=== PATIENT | male | born 1980 | race Caucasian/White ===

== ENCOUNTER 2020-05-09 21:50 | Observation (INO) | payer BC ==
[2020-05-10] MEDS ORDERED: Labetalol HCl 100 MG/20 ML VIAL SLOW IVP PRN (00:25)
[2020-05-10] MEDS ORDERED: Acetaminophen 325 MG TAB PO PRN (00:29)
[2020-05-10] MEDS ORDERED: Ondansetron ODT 4 MG TAB PO PRN (00:29)
--- NOTE | 2020-05-10 01:15 | PDOC.HHP ---
Hospitalist HPI - History of Present Illness Left upper extremity paresthesia and weakness History of Present Illness: PCP: None The patient is a 39-year-old male with no significant past medical history that presents to the ER as a transfer from [facility] for the above complaint. The patient reports the acute onset of left arm numbness, tingling and weakness prior to arrival. He reports that he was sitting in his truck, texting his on his phone when he got "tunnel vision" and left arm numbness and tingling. He reports that his left hand started to have muscle spasms with associated loss of sensation and weakness to the affected extremity. He reports this lasted anywhere from 30 seconds to a couple of minutes then spontaneously resolved. He denies any headache, changes in speech. He reports having a chiropractor adjust his neck on Wednesday. He denies any known trauma/fall. He does not take any medications. No psychiatric history. No recent fever or illness. He denies any chest pain, heart palpitations. Denies any shortness of breath, cough, wheezes. No history of COPD/asthma. No history of DVT/PE. He denies any abdominal pain, vomiting, diarrhea, hematochezia/melena. Denies any dysuria or hematuria. The patient drove himself to the [place] [facility] where he had labs along with CT/CTA performed of the brain, head and neck. He was transferred to the [facility] to rule out stroke. ED Course: [facility]: Per ER MD, labs CT/CTA unremarkable. 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 negative: ill appearing Eye: PERRL, anicteric sclera ENT: normocephalic atraumatic Neck: supple, symmetric Heart: RRR, no murmur, no gallops, no rubs, normal peripheral pulses Respiratory: CTAB, no wheezes, no rales, no ronchi, normal chest expansion Gastrointestinal: soft, non-tender, non-distended, normal bowel sounds, no guarding, no rigidity Extremities: no cyanosis, no edema Skin: no rashes Neurological: cranial nerve grossly intact Neurological - other findings: NIH 1, left upper extremity decreased sensation Musculoskeletal: normal tone, normal strength Psychiatric: normal affect, A&O x 3 Hospitalist Results - Labs Lab results: [facility]: WBC 5.7, hemoglobin 14.2, hematocrit 40.4, platelets 175 Sodium 140, potassium 4.1, chloride 100, CO2 32, BUN 14, creatinine 0.7, GFR greater than 60, glucose 98 - EKG Interpretation EKG: Normal sinus rhythm, NE 144 MS, QRS 99 MS, QT/QTc 375/385 MS. - Radiology Interpretation Chest x-ray Status: report reviewed by me Additional Comment: No significant cardiopulmonary abnormality. CT scan - head Status: report reviewed by me Additional Comment: No acute intracranial abnormality CTA brain and neck angiography with contrast: No acute intracranial abnormality. 0% stenosis. No atherosclerosis, aneurysm or acute vascular abnormality. Hospitalist H&P A/P - Problem (1) TIA (transient ischemic attack) Code(s): G45.9 - TRANSIENT CEREBRAL ISCHEMIC ATTACK, UNSPECIFIED Status: Acute (2) Weakness of left upper extremity Code(s): R29.898 - [facility] SYMPTOMS AND SIGNS INVOLVING THE MUSCULOSKELETAL SYSTEM Status: Acute - Plan Plan: 39/M presents for left upper extremity weakness and numbness. Admit to stroke unit, observation status. Expected length of stay less than 2 midnights. Vital signs stable. EKG normal sinus rhythm. CT/CTA no acute process. CXR no acute process. CMP and CBC unremarkable. #TIA Suspected. ASA and statin. Order MRI, echocardiogram. Consult neurology and physical therapy. Check TSH, FLP, mag, UA/UDS, folate/B12 Orthostatic vital signs. #Weakness of left upper extremity Potentially related to problem #1 Recent chiropractor adjustment on Wednesday. XR cervical spine. SCDs for DVT prophylaxis. No GI prophylaxis. Full code. Discussed case with Dr. Ed Palacios.
[2020-05-10 05:29] LABS: #Eosinphils 0.1 thou/uL (0.0-0.7); #Lymphocytes 1.7 thou/uL (1.20-3.40); #Monocytes 0.6 thou/uL (0.11-0.59); #Neutrophils 2.8 thou/uL (1.40-6.50); %Basophils 0.8 % (0.0-1.0); %Eosinophils 2.2 % (0.0-10.0); %Lymphocytes 31.9 % (21.0-51.0); %Monocytes 10.8 % (0.0-10.0); %Neutrophils 54.4 % (42.0-75.0); Mean Corpuscular HGB CONC 32.9 g/dL (32.0-36.0); Mean Corpuscular Hemoglobin 30.4 pg (27.0-31.0); Mean Corpuscular Volume 92.3 fL (78.0-98.0); Mean Platelet Volume 7.4 fL (7.4-10.4); Platelet Count 172 thou/uL (130-400); RBC Distribution Width 11.4 % (11.5-14.5); Red Blood Cell (RBC) Count 4.61 mill/uL (4.70-6.10); White Blood Cell (WBC) Count 5.2 thou/uL (4.8-10.8)
[2020-05-10 05:53] LABS: Anion Gap 11 mmol/L (10-20); BUN (Urea Nitrogen) 15 mg/dL (8.9-20.6); Calc. Creatinine Clearance 0 mL/min (70-130); Calcium 9.3 mg/dL (7.8-10.44); Carbon Dioxide 31 mmol/L (22-29); Cardiac Risk 3.5 (Less than 4.5); Chloride 101 mmol/L (98-107); Cholesterol 216 mg/dl (< 200 Desired); Estimated GFR-MDRD 79; Glucose 98 mg/dL (70-105); HDL Cholesterol 62 mg/dL (>60 Neg Risk); LDL Cholesterol, Calculated 136 mg/dL; Potassium 4.1 mmol/L (3.5-5.1); Sodium 139 mmol/L (136-145); Triglycerides 89 mg/dL (Less than 150)
[2020-05-10 06:16] LABS: Thyroid Stimulating Hormone 3.1208 uIU/mL (0.35-4.94)
[2020-05-10] MEDS ORDERED: Aspirin 81 mg Enteric Coated Tablet PO SCH (09:00)
[2020-05-10 09:36] LABS: SARS-CoV-2 MS2 Positive; SARS-CoV-2 N Gene Negative; SARS-CoV-2 S Gene Negative; SARS-CoV-2 by NAA Not Detected (NotDetected); SARS-CoV-2 orf1ab Negative
[2020-05-10] MEDS ORDERED: Aspirin Chewable 81 MG TAB ONE (10:33)
[2020-05-10 11:09] LABS: Amphetamine Not Detected (NotDetected); Barbiturates Screen Not Detected (NotDetected); Benzodiazepine Screen Not Detected (NotDetected); Cocaine Metabolite Screen Not Detected (NotDetected); Medtox Reader # READER 4; Methadone Not Detected (NotDetected); Methamphetamine Not Detected (NotDetected); Opiate Screen Not Detected (NotDetected); Oxycodone Screen Not Detected (NotDetected); Phencyclidine (PCP) Not Detected (NotDetected); THC/Cannabinoid Screen Not Detected (NotDetected); Tricyclic Screen Not Detected (NotDetected)
[2020-05-10 11:10] LABS: Medtox Control Line Valid? VALID (VALID)
[2020-05-10 11:15] LABS: Bacteria/HPF None Seen HPF (None Seen); Bilirubin Negative (Negative); Blood, Urine Negative (Negative); Clarity Clear (Clear); Glucose, Urine (Dipstick) Normal (Negative); Ketone, Urine Negative (Negative); Leukocyte Negative Leu/uL (Negative); Nitrite Negative (Negative); Protein, Urine (Dipstick) Negative (Neg-Trace); RBC/HPF None Seen HPF (0-3); Specific Gravity, Urine 1.038 (1.002-1.036); Squamous Epithelial None Seen HPF (0-3); Urobilinogen Normal mg/dL (Less than 2); WBC/HPF 0-3 HPF (0-3)
--- NOTE | 2020-05-10 12:47 | RAD ---
EXAM: Cervical spine 5 views including oblique views: HISTORY: Left-sided weakness and numbness COMPARISON: None FINDINGS: Evidence for some bilateral foraminal narrowing from C3-C4 through C4-C5. No evidence for acute fracture or dislocation or significant acute osseous process. Alignment:No significant malalignment. Discs: Disc spaces are adequately preserved. No evidence for a focal bone lesion. IMPRESSION: No overt acute process. Given patient's symptoms and foraminal narrowing, consider nonemergent follow -up cervical MRI for further assessment.
[2020-05-10 13:29] VITALS: BMI 28.0
[2020-05-10 13:30] VITALS: TEMP 98.8
--- NOTE | 2020-05-10 13:33 | MRI ---
Exam: Brain MRI without contrast HISTORY: Left arm and hand numbness. Transient ischemic attack. COMPARISON: None FINDINGS: Calvarial marrow signal intensity: Appropriate T1 signal Gradient echo sequence: No hemorrhage Brain parenchyma: No mass, mass effect or midline shift. Brain volume, age-appropriate. Cortical miller-white matter differentiation: Preserved Restricted diffusion: Central arterial flow voids are maintained. Absent restricted diffusion White matter signal intensities:There are scattered T2 and FLAIR white matter hyperintensities which are nonspecific. Hyperintensities in the deep and subcortical white matter. Sinuses: Adequate aeration of the paranasal sinuses and mastoid air cells. IMPRESSION: 1. Absent restricted diffusion. No acute infarct 2. Scattered T2 and FLAIR white matter hyperintensities, nonspecific. Correlate for sequelae of migra ine headaches, vasculitis, demyelinating processes other than multiple sclerosis and Lyme disease.
--- NOTE | 2020-05-10 13:40 | CON ---
NEUROLOGY CONSULTATION DATE OF CONSULTATION: 05/10/2020 REASON FOR CONSULTATION: Left upper extremity paresthesias and weakness. HISTORY OF PRESENT ILLNESS: Mr. Brush is a 39-year-old male with no significant past medical history, presented to the emergency room as a transfer because of left upper extremity paresthesias and weakness. Per patient, he was using his phone and texting his . At that time, he had an acute onset left upper extremity numbness, tingling, weakness, and he was unable to move his left arm. He was sitting in the truck at that time and he also had tunnel vision prior to left upper extremity tingling and paresthesias. Per the patient, he started having muscle spasms of the left hand, which he was unable to control at that time. The whole episode lasted for about couple of minutes and then spontaneously resolved; however, per the patient, he still continues to have numbness in the left upper extremity until last night, which resolved this morning. The patient denies nausea, vomiting, headache, chest pain, abdominal pain, loss of vision, blurred vision, vertigo, dizziness, recent illness, or recent sick contacts associated with the episode. He denies any previous history of seizures or stroke. The patient drove himself to [facility] emergency room, where the labs were done and CT of the head was performed, which was negative for acute intracranial pathology. CTA of the head and neck was also unremarkable per report. REVIEW OF SYSTEMS: All systems reviewed and were negative except for the pertinent positives and negatives mentioned in the HPI. MEDICATIONS: None. ALLERGIES: NO KNOWN DRUG ALLERGIES. PAST MEDICAL HISTORY: No significant past medical history. PAST SURGICAL HISTORY: No significant past surgical history. FAMILY HISTORY: 1. Cardiac disorder. 2. Cerebrovascular accident. SOCIAL HISTORY: The patient is , lives with his and family. Works as a [employer]. Denies alcohol or illegal drug use. Denies smoking. PHYSICAL EXAMINATION: 129/89 66 18 General Appearance: NAD, awake alert. negative: ill appearing Eye: PERRL, anicteric sclera ENT: normocephalic atraumatic Neck: supple, symmetric Heart: RRR, no murmur, no gallops, no rubs, normal peripheral pulses Respiratory: CTAB, no wheezes, no rales, no ronchi, normal chest expansion Gastrointestinal: soft, non-tender, non-distended, normal bowel sounds, no guarding, no rigidity Extremities: no cyanosis, no edema Skin: no rashes Neurological: Mental status; the patient is alert and oriented to person, place, and time. Recent and remote memory intact. Fund of knowledge is appropriate. Speech is clear. Cranial nerves 2 through 12 intact. Motor, muscle tone and bulk are normal. Strength 5/5 bilaterally. Sensory, mild decrease in sensation to light touch in the left upper extremity Gait: Not tested due to patient safety reasons DATA REVIEWED: I reviewed the labs, which are essentially unremarkable. CT of the head did not reveal any acute intracranial pathology. Lab results: [facility]: WBC 5.7, hemoglobin 14.2, hematocrit 40.4, platelets 175 Sodium 140, potassium 4.1, chloride 100, CO2 32, BUN 14, creatinine 0.7, GFR greater than 60, glucose 98 - EKG Interpretation EKG: Normal sinus rhythm, NV 144 MS, QRS 99 MS, QT/QTc 375/385 MS. - Radiology Interpretation Chest x-ray Status: report reviewed by me Additional Comment: No significant cardiopulmonary abnormality. CT scan - head Status: report reviewed by me Additional Comment: No acute intracranial abnormality CTA brain and neck angiography with contrast: No acute intracranial abnormality. 0% stenosis. No atherosclerosis, aneurysm or acute vascular abnormality. ASSESSMENT AND PLAN: (1) TIA (transient ischemic attack) Code(s): G45.9 - TRANSIENT CEREBRAL ISCHEMIC ATTACK, UNSPECIFIED Status: Acute (2) Weakness of left upper extremity Code(s): R29.898 - [facility] SYMPTOMS AND SIGNS INVOLVING THE MUSCULOSKELETAL SYSTEM Status: Acute Mr. Brush is a 39-year-old male with no significant past medical history, presented with left upper extremity paresthesias and weakness. The episode resolved in few minutes, but the numbness persisted until last night, most likely TIA. Consider MRI of the brain to rule out acute intracranial process, 2D echo to evaluate for left ventricular ejection fraction and rule out PFO. Telemetry to rule out arrhythmias. Check hemoglobin A1c, fasting lipid panel, and TSH. Orthostatic blood pressure. Start aspirin and high-intensity statin for secondary stroke prevention. Continue medical management per primary team, PT/OT/Speech. We will continue to follow. Thank you for the consult. Job ID: [id number] [facility]
[2020-05-10 14:10] VITALS: BP 119/82
[2020-05-10] MEDS ORDERED: Atorvastatin Calcium 40 MG TAB PO SCH (21:00)
--- NOTE | 2020-05-11 00:39 | DIS ---
DATE OF ADMISSION: 05/09/2020 DATE OF DISCHARGE: 05/10/2020 DISCHARGE DIAGNOSES: 1. Left upper extremity paresthesias, resolved. 2. Dyslipidemia. CONSULTATIONS: Dr. Carreno with Neurology Service. PERTINENT LABORATORY AND X-RAY FINDINGS: Complete metabolic profile within normal limits. Total cholesterol 216, triglycerides 89, HDL 62, LDL 136. Vitamin B12 level 520, folate 14.8, TSH 3.12. CBC within normal limits. Urine drug screen dated 05/10/2020, negative. COVID-19 PCR not detected, 05/09/2020. MRI of the brain dated 05/10/2020, showed no acute intracranial process. 2D transthoracic echocardiogram dated 05/10/2020, showed ejection fraction of 55% to 60%. Normal study. Cervical spine radiographs dated 05/10/2020, showed no acute process. HOSPITAL COURSE: The patient was observed after presenting with left upper extremity paresthesias and weakness with initial concern for TIA-like symptoms. The patient underwent evaluation including CT of the brain and CT angiogram of the head and neck at an outside emergency room where these were interpreted as negative. The patient was transferred to [facility], undergoing MRI imaging of the brain showing no acute process. Metabolic screening was essentially unremarkable and the patient remained clinically stable throughout the hospital course. The patient's symptoms resolved rapidly without recurrence. Likely the patient's presentation due to cervical myelopathy or radiculopathy and no evidence of central process. I have examined the patient at the time of discharge and discussed followup instructions. The patient verbalized understanding and agreement, ready for discharge on 05/10/2020. DISCHARGE MEDICATIONS: None. FOLLOWUP: The patient may follow up with primary care provider of choice. CONDITION ON DISCHARGE: Stable. ACTIVITY: Ad claudia. DIET: Regular. CODE STATUS: Full. DISPOSITION: To home on 05/10/2020. Job ID: [id number]
== END 2020-05-10 18:22 | disposition home or self-care (01) ==
LOC: ERS 21:50 → ERHOLD 22:30 → 2SE 05-10 12:55
PROVIDERS: ADMIT Internal Medicine; ATTEND Internal Medicine
DX: R20.2 Paresthesia of skin (principal); R29.898 Other symptoms and signs involving the musculoskeletal system; E78.5 Hyperlipidemia, unspecified; Z20.828 Contact with and (suspected) exposure to other viral communicable diseases
CPT/HCPCS: 36415; 70551; 72050; 80048; 80061; 80306; 81001; 82607; 82746; 83735; 84443; 85025; 87635; 93306; 99284; G0378; U0003